=== PATIENT | male | born 1955 | race Caucasian/White ===

== ENCOUNTER 2022-10-04 12:09 | Emergency (ER) | payer OTHER, SELFPAY ==
--- NOTE | 2022-10-04 12:14 | DI.US.S_ITS ---
PROCEDURE: US SCROTUM INDICATIONS: Lt testicular pain TECHNIQUE: Real-time scanning was performed of the scrotum and testicles, with image documentation. Color and pulse Doppler interrogation was performed of both testicles. COMPARISON: None. FINDINGS: Right: Surgically absent Left: Testicle is normal in size at 4.7 x 2.6 x 3.1 cm, and contains several simple cysts, largest of 1.3 x 0.9 x 1.1 cm. Prominent rete testis also noted. Epididymis also contains several simple cysts, largest 1.2 x 1.4 x 1.5 cm. No hydrocele or varicoceles. Overlying scrotal skin is normal in thickness. Doppler: Color and pulse Doppler demonstrate normal and symmetric arterial flow in both testicles. IMPRESSION: 1. Left testicular and epididymal cysts. 2. Right orchectomy Approved by: Jamey Rand M.D. on 10/04/2022 at 13:59
[2022-10-04 12:18] VITALS: BP 129/77; PULSE 62; RESP 18; TEMP 36.9; O2SAT 98; BMI 31.8
--- NOTE | 2022-10-04 12:24 | ED.MALEGU ---
HPI - Male Genitourinary General Chief complaint: Urogenital-Male Stated complaint: Left testical pain Time Seen by Provider: 10/04/22 12:14 Source: patient, RN notes reviewed and old records reviewed Mode of arrival: Ambulatory Limitations: no limitations History of Present Illness HPI Narrative: This is a 67-year-old male only daily medication is citalopram with prior right testicular removed secondary to benign cyst. Patient states he developed discomfort this morning in the left testicle feels like a pinching or a closed pin as his left testicle. Patient states it is very uncomfortable he states it radiates up into the left side of his abdomen a little bit towards his flank. He denies any fevers or chills. He is had some mild nausea he is not had any vomiting. No chest pain or shortness of breath. No syncope. He states he is had normal bowel movements today no diarrhea or constipation. He states he did urinate more frequently this morning he usually urinates 2 or 3 times daily and he is already gone 4 or 5 times today. Eating and crit notice any increased pain in the testicle with urination, no dysuria or sense of urgency but did have frequency. No penile discharge. He has not had similar symptoms in the past. He notes many years ago he had a cyst that kept enlarging on his right testicle was taken to the OR to potentially remove it and there was a complication and ultimately the right testicle was removed in its entirety. Patient states he took 2 tablets of ibuprofen around 930 this morning was mildly helpful. He defers anything additional for pain. He states his only other surgery has been a cervical surgery for radiculopathy. Patient has a former smoker, occasional alcohol, no illicit. He lives in [place], [place]. 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 Related Data Previous Rx's Medication Instructions Recorded naproxen 500 mg tablet 500 mg PO BID ##30 03/05/16 Allergies Allergy/AdvReac Type Severity Reaction Status Date / Time No Known Drug Allergies Allergy Verified 03/13/19 14:20 Review of Systems Review of Systems ROS Unobtainable: All systems reviewed & are unremarkable except as noted in HPI and below Patient History Social History Smoking Status: Former smoker Exam Narrative Exam Narrative: GENERAL: Alert and oriented x three, well-appearing male in mild distress. HEENT: Head normocephalic, atraumatic, EOMI, pupils reactive, face symmetric, moist mucous membranes NECK: Supple, full range of motion CARDIOVASCULAR: Regular rate and rhythm without murmurs, rubs or gallops. RESPIRATORY: Breath sounds equal bilaterally, no wheezes rales or rhonchi. ABDOMEN: Soft, nontender. Normoactive bowel sounds all 4 quadrants. No guarding or rebound, rigidity, no mass : No CVA tenderness. Male: normal external examination with the exception of missing right testicle/scrotum, no penile discharge or lesions, testicle is non-tender, cremasteric reflex intact, no inguinal hernias noted. EXTREMITIES: Normal range of motion, no clubbing or edema. Neurovascularly intact NEUROLOGICAL: Cranial nerves II through XII grossly intact. Moving all extremities SKIN: Warm, dry, no petechiae, no rashes or lesions. Initial Vital Signs Initial Vital Signs: Vital Signs Temperature 98.4 F 10/04/22 12:18 Pulse Rate 62 10/04/22 12:18 Respiratory Rate 18 10/04/22 12:18 Blood Pressure 129/77 10/04/22 12:18 Pulse Oximetry 98 10/04/22 12:18 Oxygen Delivery Method Room Air 10/04/22 12:18 Course Orders Ordered: ED Orders 10/04/22 12:14 US scrotum Stat 10/04/22 12:26 Chlamydia Gonorrhea PCR -URINE Stat UA Complete [Urinalysis and Microscopic] Stat Urine Culture Stat Vital Signs Vital signs: Vital Signs - 8 hr 10/04/22 12:18 10/04/22 15:14 Temperature 98.4 F Pulse Rate 62 65 Respiratory Rate 18 16 Blood Pressure 129/77 148/82 H Pulse Oximetry 98 99 Oxygen Delivery Method Room Air Room Air MDM - Male Genitourinary Lab Data Labs: Lab Results 10/04/22 10/04/22 Range/Units 12:26 12:26 Urine Color Yellow Urine Appearance Clear Urine pH 7.0 (4.5-8.0) Ur Specific [place] 1.010 (1.000-1.035) Urine Protein Negative (Negative) Urine Glucose (UA) Negative (Negative) g/dL Urine Ketones Negative (NEGATIVE) Urine Occult Blood Negative (Negative) Urine Nitrate Negative (Negative) Urine Bilirubin Negative (NEGATIVE) Urine Urobilinogen 0.2 (0.2) E.U./dL Ur Leukocyte Esterase Negative (NEGATIVE) Urine RBC None seen (0-5/HPF) Urine WBC None seen (0-5/HPF) Ur Squamous Epith Cells None seen (0-5/HPF) Urine Bacteria None seen (None) Ur Culture Indicated? Cult not indicated Ur Chlamydia DNA (PCR) Not detected N gonorrhoeae DNA (PCR) Not detected Imaging Data scrotum US: Radiologist's Impression: [address] [address] Ultrasound Report Signed Patient: Huey House JR MR#: [id number] : 1955 Acct:[id number] Age/Sex: 67 / M Date of Service: 10/04/22 Loc: ED Accession Number: [id number] ?? Procedure: US scrotum Ordering Provider: Lillian Romo PROCEDURE:? US SCROTUM ? INDICATIONS:? Lt testicular pain ? TECHNIQUE:? Real-time scanning was performed of the scrotum and testicles, with image documentation.? Color and pulse Doppler interrogation was performed of both testicles.? ? COMPARISON:? None. ? FINDINGS:? ? Right:? Surgically absent ? Left:? Testicle is normal in size at 4.7 x 2.6 x 3.1 cm, and contains several simple cysts, largest of 1.3 x 0.9 x 1.1 cm.? Prominent rete testis also noted.? Epididymis also contains several simple cysts, largest 1.2 x 1.4 x 1.5 cm.? No hydrocele or varicoceles.? Overlying scrotal skin is normal in thickness.? ? Doppler:? Color and pulse Doppler demonstrate normal and symmetric arterial flow in both testicles.? ? IMPRESSION:? ? 1. Left testicular and epididymal cysts. ? 2. Right orchectomy ? ? ? Approved by: Jamey Rand M.D. on 10/04/2022 at 13:59? [facility] Narrative Medical decision making narrative: This is a 67-year-old male with single testicle who presents with left testicular pain. Urine is negative for dissection, urine GC is negative, ultrasound shows epididymal cysts. Patient does not have any signs of torsion. Discussed with patient plan for follow up in the short term. He is primary care where he lives at has seen Neurology in the past. Patient given strict return precautions. All questions answered. Discharge Plan Departure Patient Disposition: Home Clinical Impression: Epididymal cyst Instructions: Epididymal Cyst Activity Restrictions/Additional Instructions: Please follow up with your physician for recheck if you are not having any improvement in the next 48 hours. If persisting you may need follow up with urology. You may take ibuprofen and/or Tylenol as needed for pain. You do have several cysts in the epididymal area of your testicle on the left. Your workup does not show any obvious signs of infection, urine culture was sent if this is positive you will be contacted to start antibiotics. This typically takes 48-72 hours. Please return for new or worsening testicular pain, abdominal back or flank pain, fevers, chills, vomiting, new swelling, redness or skin changes, difficulty with urination or other new or concerning changes. Prescriptions: No Action naproxen 500 MG tablet 500 mg PO BID Qty: 30 0RF Referrals: Miscellaneous,Doctor, [Primary Care Provider] - Stand Alone Forms: Patient Portal/API, Work Release Note
[2022-10-04 12:48] LABS: Appearance Urine UA CLEAR; Bilirubin Urine UA NEGATIVE (NEGATIVE); Color Urine UA YELLOW; Glucose Urine UA NEGATIVE (Negative); Ketones Urine UA NEGATIVE (NEGATIVE); Leukocyte Esterase Urine UA NEGATIVE (NEGATIVE); Nitrite Urine UA NEGATIVE (Negative); Occult Blood Urine UA NEGATIVE (Negative); Protein Urine UA NEGATIVE (Negative); Urobilinogen Urine UA 0.2 E.U./dL (0.2)
--- NOTE | 2022-10-04 13:00 | PC.NURSE ---
Stand by assist for testicular exam by Dr. Pedraza
[2022-10-04 13:11] LABS: Bacteria Urine None Seen; Culture Indicated Urine Cult Not Indicated; RBC Urine None Seen (0-5/HPF); Squamous Epithelial Cell Urine None Seen (0-5/HPF); WBC Urine None Seen (0-5/HPF)
[2022-10-04 14:18] LABS: Urine N gonorrhoeae NOT DETECTED
[2022-10-04 14:24] LABS: Urine Chlamydia NOT DETECTED
[2022-10-04 15:14] VITALS: BP 148/82; PULSE 65; RESP 16; O2SAT 99
== END 2022-10-04 15:35 | disposition home or self-care (01) ==
PROVIDERS: Nurse Practitioner Critical Care Medicine; Emergency Provider Emergency Medicine
DX: N44.2 Benign cyst of testis (principal)
CPT/HCPCS: 76870; 81001; 87086; 87491; 87591; 93975; 99283